=== PATIENT | female | born 1965 | race Caucasian/White ===

== ENCOUNTER 2017-04-24 00:43 | Emergency (ER) | payer OTHER ==
[~2017-04-24 00:43] MED LIST: VICODIN 5/500 T1 TAB PO
== END 2017-04-24 04:10 | disposition home or self-care (01) ==
LOC: CED 00:43
DX: S90.562A Insect bite (nonvenomous), left ankle, initial encounter (principal); W57.XXXA Bitten or stung by nonvenomous insect and other nonvenomous arthropods, initial encounter; Y92.9 Unspecified place or not applicable; Z88.2 Allergy status to sulfonamides; F17.210 Nicotine dependence, cigarettes, uncomplicated
CPT/HCPCS: 99282